=== PATIENT | male | born 1960 | race Caucasian/White ===

== ENCOUNTER → 2022-06-27 | Emergency (ER) | payer OTHER, MEDICAID ==
[~2022-06-27] VITALS: Ht 177.8 cm; Wt 80.0 kg
[~2022-06-27] MED LIST: ASPIRIN 81MG TABLET PO ONE; LORA-249 MT; LORAZEPAM 1MG TABLET PO ONE; NITROGLYCERIN 0.4MG TABLET SL SL PRN
[2022-06-27 20:02] LABS: D-DIMER 0.21 mg/L FEU (<0.50); INR 1.2; PARTIAL THROMBOPLASTIN TIME 24.8 sec (23.4-31.0)
[2022-06-27 20:18] LABS: EOSINOPHILS % 1.8 % (0.0-5.0); HEMATOCRIT. 44.1 % (42.0-52.0); LYMPHOCYTES % 28.4 % (20.0-50.0); MEAN CORPUSCULAR HEMOGLOBIN 32.3 pg (28.0-32.0); MEAN CORPUSCULAR VOLUME 94.9 fL (80.0-94.0); MEAN PLATELET VOLUME 10.5 fl (7.4-10.4); MONOCYTES % 9.6 % (2.0-8.0); NEUTROPHILS % 59.2 % (40.0-76.0); PLATELET 102 x1000/uL (130-400); RED BLOOD CELL COUNT 4.65 mill/uL (4.7-6.1); RED CELL DISTRIBUTION WIDTH 14.3 % (11.6-14.6)
[2022-06-27 21:59] LABS: CHLORIDE 106 mEq/L (98-107)
[2022-06-27 22:00] VITALS: BP 138/66
== END | disposition home or self-care (01) ==
LOC: ER 15:18 → EDBEDREQ 20:42 → EDBEDREQTM 20:42 → CMPBEDREQ 06-29 01:22
DX: R07.89 Other chest pain (principal); R06.00 Dyspnea, unspecified; N40.0 Benign prostatic hyperplasia without lower urinary tract symptoms; F17.210 Nicotine dependence, cigarettes, uncomplicated; Z71.6 Tobacco abuse counseling; Z88.6 Allergy status to analgesic agent
CPT/HCPCS: 36415; 71045; 80053; 83880; 84484; 85025; 85379; 93005; 99285; 99406